=== PATIENT | male | born 1975 | race Caucasian/White ===

== ENCOUNTER 2018-11-05 19:12 | Emergency (ER) | payer BC ==
[~2018-11-05] VITALS: Ht 182.9 cm; Wt 112.9 kg
[2018-11-05 19:15] VITALS: BP 142/95
[2018-11-05] MEDS ORDERED: IBUP200T58 PO (19:29)
--- NOTE | 2018-11-05 19:41 | ED.ADGEN ---
Past History Past Medical History: No Pertinent History Past Surgical History: No Surgical History Alcohol Use: None Drug Use: None, Other Adult General Chief Complaint Chief Complaint facial pain HPI HPI 43 years old gentleman who slipped on ice and fell down to struck with the left side of his face presented emergency department with facial pain no loss of consciousness no nausea no vomiting he took Advil and is been applying ice. He stated I just want to make sure i m okay Review of Systems Review of Systems Constitutional: Denies fever or chills [] Eyes: Denies change in visual acuity, redness, or eye pain [] HENT: Denies nasal congestion or sore throat [] Respiratory: Denies cough or shortness of breath [] Cardiovascular: No additional information not addressed in HPI [] GI: Denies abdominal pain, nausea, vomiting, bloody stools or diarrhea [] : Denies dysuria or hematuria [] Musculoskeletal: Denies back pain or joint pain [] Integument: Denies rash or skin lesions [] Neurologic: Denies focal weakness or sensory changes [] Endocrine: Denies polyuria or polydipsia [] All other systems were reviewed and found to be within normal limits, except as documented in this note. Allergies Allergies Allergies Coded Allergies Type Severity Reaction Last Updated Verified No Known Drug Allergies 11/05/18 No Physical Exam Physical Exam Constitutional: Well developed, well nourished, no acute distress, non-toxic appearance. [] HENT: Normocephalic, atraumatic, bilateral external ears normal, oropharynx moist, no oral exudates, nose normal. [] Eyes: PERRLA, EOMI, conjunctiva normal, no discharge. [] Neck: Normal range of motion, no tenderness, supple, no stridor. [] Cardiovascular:Heart rate regular rhythm, no murmur [] Lungs & Thorax: Bilateral breath sounds clear to auscultation [] Abdomen: Bowel sounds normal, soft, no tenderness, no masses, no pulsatile masses. [] Skin: Warm, dry, no erythema, no rash. [] Back: No tenderness, no CVA tenderness. [] Extremities: No tenderness, no cyanosis, no clubbing, ROM intact, no edema. [] Neurologic: Alert and oriented X 3, normal motor function, normal sensory function, no focal deficits noted. [] Psychologic: Affect normal, judgement normal, mood normal. [] EKG EKG [] Radiology/Procedures Radiology/Procedures Patient refused CT scan of the head and facial bone, stated I do not want to expose the radiation does not necessarily I feel fine I just want to physical exam he also discussed with his agreed with him on the phone. I explained to the patient that we cannot rule out many of our differential diagnoses without a CT scan of the head and facial bone he stated if I get worse or come back to the ER I just do not want my pill to be very expensive. I explained the risk and benefits she verbalized understanding[] Course & Med Decision Making Course & Med Decision Making Pertinent Labs and Imaging studies reviewed. (See chart for details) [] Final Impression Final Impression [] Problems: (1) Head injury Qualifiers: Qualified Codes: S09.90XA - Unspecified injury of head, initial encounter (2) Facial contusion Qualifiers: Qualified Codes: S00.83XA - Contusion of other part of head, initial encounter Dragon Disclaimer Dragon Disclaimer This electronic medical record was generated, in whole or in part, using a voice recognition dictation system. MACK CLARK MD Nov 05, 2018 19:41
[2018-11-06] MEDS ORDERED: HYDR-3165 PO (01:38)
== END 2018-11-05 19:45 | disposition home or self-care (01) ==
LOC: ER 19:12
DX: S00.83XA Contusion of other part of head, initial encounter (principal); W00.0XXA Fall on same level due to ice and snow, initial encounter; Y93.89 Activity, other specified; Y92.89 Other specified places as the place of occurrence of the external cause; Y99.8 Other external cause status
CPT/HCPCS: 99284

== ENCOUNTER 2018-11-06 01:17 | Emergency (ER) | payer BC ==
[~2018-11-06] VITALS: Ht 182.9 cm; Wt 112.9 kg
[~2018-11-06 01:17] MED LIST: IBUP200T58 PO
[2018-11-06 01:24] VITALS: BP 150/95
--- NOTE | 2018-11-06 01:30 | ED.ADGEN ---
Past History Past Medical History: No Pertinent History Past Surgical History: Other Alcohol Use: None Drug Use: None, Other Adult General Chief Complaint Chief Complaint facial trauma [facility] HPI 43 years old gentleman was seen earlier for facial trauma after he fell down and hit his struck initially he refused x-rays he presented again to the emergency department stating his pain is worse and he is agreeing to have CT scan of the face and head. No focal neurological findings or symptoms. No double vision no blurry vision no tinnitus Review of Systems Review of Systems Constitutional: Denies fever or chills [] Eyes: Denies change in visual acuity, redness, or eye pain [] HENT: Denies nasal congestion or sore throat [] Respiratory: Denies cough or shortness of breath [] Cardiovascular: No additional information not addressed in HPI [] GI: Denies abdominal pain, nausea, vomiting, bloody stools or diarrhea [] : Denies dysuria or hematuria [] Musculoskeletal: Denies back pain or joint pain [] Integument: Denies rash or skin lesions [] Neurologic: Denies, focal weakness or sensory changes [] Endocrine: Denies polyuria or polydipsia [] All other systems were reviewed and found to be within normal limits, except as documented in this note. Allergies Allergies Allergies Coded Allergies Type Severity Reaction Last Updated Verified No Known Drug Allergies 11/05/18 No Physical Exam Physical Exam Constitutional: Well developed, well nourished, no acute distress, non-toxic appearance. [] HENT: Normocephalic, atraumatic, bilateral external ears normal, oropharynx moist, no oral exudates, nose normal. [] Eyes: PERRLA, EOMI, conjunctiva normal, no discharge. [] Neck: Normal range of motion, no tenderness, supple, no stridor. [] Cardiovascular:Heart rate regular rhythm, no murmur [] Lungs & Thorax: Bilateral breath sounds clear to auscultation [] Abdomen: Bowel sounds normal, soft, no tenderness, no masses, no pulsatile masses. [] Skin: Warm, dry, no erythema, no rash. [] Back: No tenderness, no CVA tenderness. [] Extremities: No tenderness, no cyanosis, no clubbing, ROM intact, no edema. [] Neurologic: Alert and oriented X 3, normal motor function, normal sensory function, no focal deficits noted. [] Psychologic: Affect normal, judgement normal, mood normal. [] Current Patient Data Vital Signs Vital Signs Date Time Temp Pulse Resp B/P (MAP) Pulse Ox O2 Delivery O2 Flow Rate FiO2 11/06/18 01:24 98.6 86 16 96 Room Air EKG EKG [] Radiology/Procedures Radiology/Procedures [] Course & Med Decision Making Course & Med Decision Making Pertinent Labs and Imaging studies reviewed. (See chart for details) [] Final Impression Final Impression [] Problems: (1) Facial contusion Qualifiers: Qualified Codes: S00.83XD - Contusion of other part of head, subsequent encounter Dragon Disclaimer Dragon Disclaimer This electronic medical record was generated, in whole or in part, using a voice recognition dictation system. MACK CLARK MD Nov 06, 2018 01:30
[2018-11-06] MEDS ORDERED: HYDR-3165 PO (01:38)
[2018-11-06] MEDS ORDERED: HYDROcodone/APAP 5/325MG 1 TAB TABLET PO ONE (02:00)
--- NOTE | 2018-11-06 02:20 | RAD ---
CT head without contrast. Maxillofacial CT without contrast. PQRS statement: CT scans at this facility use dose reduction including either automated exposure control, iterative reconstructions, and /or weight based radiation dosing via mA and kV modification when appropriate to reduce radiation dose to as low as reasonably achievable. History: Trauma, fell and hit left side of head and face with left head and face pain, swelling and headache. TECHNIQUE: Noncontrast CT imaging of the head and facial bones with multiplanar reconstructions was acquired. CT head findings: No intracranial hemorrhage, mass, hydrocephalus, extra-axial fluid collections or infarction. There is mild left temporal parietal scalp soft tissue swelling and edema along with 2 cm in thickness hyperdensity of the temporalis muscle consistent with hematoma. Imaged mastoids, orbits and bones are unremarkable. IMPRESSION: No acute intracranial CT abnormality. Left temporal parietal scalp soft tissue edema and swelling associated with a 2 cm hematoma within the substance of the temporalis muscle. No skull fracture. Maxillofacial CT findings: Partial opacification of the left ethmoid sinuses anteriorly and mucosal thickening left maxillary sinus. No fluid within the sinuses. No fracture of the facial bones. Orbits intact. Maxilla intact. Mandible intact. No orbital edema or hematoma. IMPRESSION: Facial bones intact. Electronically signed by: Lloyd Mcpherson MD (11/06/2018 2:15 AM) [facility]
== END 2018-11-06 02:43 | disposition home or self-care (01) ==
LOC: ER 01:17
DX: S00.83XD Contusion of other part of head, subsequent encounter (principal); W18.09XD Striking against other object with subsequent fall, subsequent encounter
CPT/HCPCS: 70450; 70486; 99284-25